=== PATIENT | male | born 1970 | race Two or more races ===

== ENCOUNTER 2022-12-08 19:29 | Emergency (ER) | payer OTHER ==
[~2022-12-08] VITALS: Ht 177.8 cm; Wt 81.6 kg
== END 2022-12-08 22:55 | disposition home or self-care (01) ==
LOC: ER 19:29
DX: S79.812A Other specified injuries of left hip, initial encounter (principal); W19.XXXA Unspecified fall, initial encounter; Y93.89 Activity, other specified; Y92.89 Other specified places as the place of occurrence of the external cause; Y99.8 Other external cause status; S09.8XXA Other specified injuries of head, initial encounter; S14.109A Unspecified injury at unspecified level of cervical spinal cord, initial encounter; S34.21XA Injury of nerve root of lumbar spine, initial encounter; M54.59 Other low back pain

== ENCOUNTER 2025-01-27 07:02 | Emergency (ER) | payer OTHER ==
[~2025-01-27] VITALS: Ht 180.3 cm; Wt 72.6 kg
[2025-01-27 07:11] VITALS: BP 110/70; O2SAT 99
[2025-01-27] MEDS ORDERED: PANTOPRAZO40 MG/50 M (07:16)
[2025-01-27] MEDS ORDERED: PEPCID AC20 MG (07:16)
[2025-01-27] MEDS ORDERED: DICYCLOMIN10 MG/5 M1 (07:17)
[2025-01-27] MEDS ORDERED: 0.9 % SODIUM CHLORIDE 1,000 ML IV STA (08:21)
[2025-01-27 09:50] LABS: BASO % 0.7 % (0.1-1.2); EOS # 0.04 (0.04-0.54); EOS % 0.9 % (0.7-7.0); HEMATOCRIT 49.8 % (40.1-51.0); HEMOGLOBIN 16.6 g/dL (13.7-17.5); LYMPH # 0.93 (1.18-3.74); LYMPH % 21.8 % (19.3-53.1); MEAN CORPUSCULAR HEMOGLOBIN 27.3 pg (25.6-32.2); MONO # 0.43 (0.24-0.82); MONO % 10.1 % (4.7-12.5); NEUT # 2.83 (1.56-6.13); NEUT % 66.3 % (34.0-71.1); PLATELET COUNT 163 K/uL (163-369); RED BLOOD COUNT 6.09 M/uL (4.63-6.08); RED CELL DISTRIBUTION WIDTH 13.1 % (11.6-14.4)
[2025-01-27 10:19] LABS: ALBUMIN 3.8 gm/dL (3.4-5.0); BILIRUBIN TOTAL 0.58 mg/dL (0.3-1.2); CREATININE SERUM 1.12 mg/dL (0.70-1.30); GFR 68.85; GLOBULINA 4.3 G/DL (2.4-3.5); POTASSIUM 4.15 mEq/L (3.5-5.1); TOTAL PROTEIN 8.1 gm/dL (6.4-8.2)
[2025-01-27 10:53] LABS: URINE APPEARANCE Clear; URINE BILIRRUBIN Negative (NEGATIVE); URINE BLOOD Small; URINE COLOR Dark Yellow; URINE GLUCOSE Negative (NEGATIVE); URINE LEUKOCYTE Negative; URINE NITRATE Negative; URINE PROTEIN 30 (NEGATIVE); URINE UROBILINOGEN 0.2 E.U./dl
[2025-01-27 10:59] LABS: URINE BACTERIA 6.1 uL (0.0-1933); URINE RBC 61.2 uL (0.0-20.8); URINE WBC 21.1 uL (0.0-23.2)
[2025-01-27 11:38] LABS: URINE CAST 0.88 uL (0.0-1.40); URINE KETONE 40 (NEGATIVE)
[2025-01-27 11:39] LABS: URINE MUCUS MODERATE
[2025-01-27] MEDS ORDERED: METRONIDAZOLE/SODIUM CHLORIDE 500 MG/100 ML PIGGYBACK IV ONE ×2 (12:56→13:00)
[2025-01-27] MEDS ORDERED: CIPROFLOXACIN IN 5 % DEXTROSE 400 MG/200 ML PIGGYBAG IV ONE ×2 (12:56→13:00)
== END 2025-01-27 16:34 | disposition home or self-care (01) ==
LOC: ER 07:02
PROVIDERS: Emergency Medicine
DX: K52.9 Noninfective gastroenteritis and colitis, unspecified (principal)